=== PATIENT | female | born 1985 | race Caucasian/White ===

== ENCOUNTER 2017-02-11 21:48 | Emergency (ER) | payer OTHER ==
[2017-02-11 22:03] LABS: COLOR YELLOW; LEUKOCYTE ESTERASE,URINE NEGATIVE (NEGATIVE); NITRITE,URINE NEGATIVE (NEGATIVE); PH,URINE 6.5 (5.0-7.5)
--- NOTE | 2017-02-11 22:11 | EDPHY ---
H & P Time Seen by Provider: 02/11/17 21:54 HPI/ROS: HPI Left flank pain, hematuria. 31-year-old female by private vehicle with her . This patient reports that she developed some dull aching in her left flank pain earlier today. She reports that it subsided a bit and then about 45 minutes prior to arrival the pain became very intense, she had an episode of hematuria and the pain then resolved. She is feeling much better now and denies any significant pain at this time. ROS: Constitutional: No fever, no chills. No weakness. Eyes: No discharge. No changes in vision. ENT: No sore throat. No nasal congestion or rhinorrhea. Respiratory: No cough. No shortness of breath. Cardiac: No chest pain, no palpitations. Gastrointestinal: No abdominal pain, no vomiting, no diarrhea. Genitourinary: As above. No dysuria or increased frequency with urination. Musculoskeletal: As above. No neck pain. No myalgias or arthralgias. Skin: No rashes. Neurological: No headache. No focal weakness or altered sensation. Past medical history: No significant past medical history. Social history: Here with her . Nonsmoker. Physical Exam: General Appearance: Alert, no distress. This patient is responding to questions appropriately and in full sentences. This patient appears well- hydrated and well-nourished. Eyes: Pupils equal and round no pallor or injection. No lid edema, erythema or injection. Respiratory: There are no retractions, lungs are clear to auscultation with good air movement bilaterally. Cardiovascular: Regular rate and rhythm. No murmur. Gastrointestinal: Abdomen is soft and nontender, no masses, bowel sounds normal. No focal tenderness at McBurney's point. No Servin sign. Neurological: Motor sensory function is grossly intact. Cranial nerves are normal. Gait is normal. Skin: Warm and dry, no rashes. Musculoskeletal: Mild left-sided CVA tenderness if any. No right-sided CVA tenderness. Extremities are symmetrical. All joints range without pain or impingement. Psychiatric: No agitation. No depression. Database: EKG: Imaging: Procedures: Emergency department course: Vital signs reviewed and are normal. Patient appears comfortable. History is consistent with a ureterolithiasis that is passed into her bladder. Urinalysis is consistent with this as well. Significant for hematuria only and no evidence of infectious process. Urinalysis results discussed with the patient. She declines imaging for further evaluation. She feels comfortable going home with her . Instructions on oral hydration and kidney stone management discussed with the 2 of them. All their questions were answered. The patient was discharged home in good condition with her . Differential Diagnosis: The differential diagnosis on this patient includes but is not limited to kidney stone. Pyelonephritis, urinary tract infection, musculoskeletal etiology unlikely. This represents a partial list of diagnoses considered. These considerations are based on history, physical exam, past history, reassessment and diagnostic testing. Constitutional: Initial Vital Signs Temperature (C) 36.9 C 02/11/17 22:00 Heart Rate 58 L 02/11/17 22:00 Respiratory Rate 16 02/11/17 22:00 Blood Pressure 125/77 H 02/11/17 22:00 O2 Sat (%) 97 02/11/17 22:00 O2 Delivery Mode Room Air Allergies/Adverse Reactions: cefaclor [From [facility]] Allergy (Verified 02/11/17 22:17) Home Medications: Medication Instructions Recorded Ortho Tri-Cyclen Lo Tablet 02/11/17 Sertraline HCl [Zoloft 25mg (*)] 02/11/17 Medical Decision Making - Data Points Laboratory Results: 02/11/17 02/11/17 21:55 21:55 Urine Color YELLOW Urine Appearance CLEAR Urine pH 6.5 (5.0-7.5) Ur Specific [place] 1.010 (1.002-1.030) Urine Protein NEGATIVE (NEGATIVE) Urine Ketones NEGATIVE (NEGATIVE) Urine Blood 3+ H (NEGATIVE) Urine Nitrate NEGATIVE (NEGATIVE) Urine Bilirubin NEGATIVE (NEGATIVE) Urine Urobilinogen 0.2 EU EU (0.2-1.0) Ur Leukocyte Esterase NEGATIVE (NEGATIVE) Urine RBC 25-50 /hpf H /hpf (0-3) Urine WBC NONE SEEN /hpf /hpf (0-3) Ur Epithelial Cells 1+ /lpf /lpf (NONE-1+) Urine Mucus 1+ /lpf /lpf (NONE-1+) Urine Glucose NEGATIVE (NEGATIVE) Urine Test NEGATIVE Departure - Departure Disposition: Home, Routine, Self-Care Clinical Impression: Kidney stone on left side Condition: Good Instructions: Kidney Stones (ED) Additional Instructions: Read and follow provided instructions. Follow-up with your primary care physician in 1-2 days for re-evaluation as needed. Ibuprofen dosin mg every 6 hours with meals for the next 3 days only. Take only as needed for residual pain Return to the emergency department for return of pain, vomiting, fever or other serious concerns. Referrals: Mary Chase MD [Primary Care Provider] - As per Instructions
[2017-02-11 22:17] LABS: WBC,URINE NONE SEEN /hpf (0-3)
[2017-02-11 22:18] LABS: MUCUS 1+ /lpf (NONE-1+); RBC,URINE 25-50 /hpf (0-3)
[2017-02-11 22:22] VITALS: BP 125/77; PULSE 58; RESP 16; TEMP 98.4; O2SAT 97
== END 2017-02-11 22:26 | disposition home or self-care (01) ==
LOC: CED 21:48
DX: N20.0 Calculus of kidney (principal)
CPT/HCPCS: 81003-PO; 81015-PO; 81025-PO

== ENCOUNTER → 2017-02-26 | Outpatient (CLI) | payer OTHER | LOC: CIMAGING 09:17 | PROVIDERS: ATTEND Family Medicine | DX: R42 Dizziness and giddiness (principal); R51 Headache | CPT/HCPCS: 70450-PO ==

== ENCOUNTER → 2017-11-30 | Outpatient (CLI) | payer OTHER | LOC: CIMAGING 14:47 | PROVIDERS: ATTEND Family Medicine | DX: R31.9 Hematuria, unspecified (principal); R10.11 Right upper quadrant pain; R19.7 Diarrhea, unspecified | CPT/HCPCS: 76700-PO ==

== ENCOUNTER → 2018-12-20 | Outpatient (CLI) | payer OTHER | LOC: CIMAGING 11:24 | PROVIDERS: ATTEND Specialist | DX: N20.0 Calculus of kidney (principal) | CPT/HCPCS: 74176-PO ==

== ENCOUNTER → 2019-01-16 | Outpatient (CLI) | payer OTHER | LOC: CIMAGING 12:05 | PROVIDERS: ATTEND Family Medicine | DX: M54.2 Cervicalgia (principal) | CPT/HCPCS: 72040-PO ==